=== PATIENT | female | born 1995 | race Caucasian/White ===

== ENCOUNTER 2024-12-02 09:12 | Inpatient (IN) | payer BC, OTHER ==
[2024-12-02] MEDS ORDERED: Zofran 4 MG/2 ML VIAL IV PRN (09:43)
[2024-12-02] MEDS ORDERED: TYLENOL EXTRA STRENGTH 500 MG PO PRN (09:43)
[2024-12-02] MEDS ORDERED: Lactated Ringers 1,000 ML IV SCH (10:00)
[2024-12-02] MEDS ORDERED: CYTOTEC PO SCH (10:00)
[2024-12-02 10:06] LABS: Hematocrit 32.6 % (34.1-44.9); Hemoglobin 11.1 g/dL (11.2-15.7); Mean Cell Volume 85.6 fL (79.4-94.8); Mean Corpuscular Hemoglobin 29.1 pg (25.6-32.2); Mean Platelet Volume 12.6 fL (9.4-12.3); Platelet Count 134 x10^3/uL (182-369); Red Blood Count 3.81 x10^6/uL (3.93-5.22); Red Cell Distribution Width 13.7 % (11.7-14.4); White Blood Count 7.9 x10^3/uL (3.98-10.04)
[2024-12-02 10:27] LABS: Amphetamine,Urine NEGATIVE (NEGATIVE); Barbiturate,Urine NEGATIVE (NEGATIVE); Benzodiazepine,Urine NEGATIVE (NEGATIVE); Cocaine,Urine NEGATIVE (NEGATIVE); Methadone,Urine NEGATIVE (NEGATIVE); Opiate,Urine NEGATIVE (NEGATIVE); PCP,Urine NEGATIVE (NEGATIVE); THC,Urine NEGATIVE (NEGATIVE)
[2024-12-02 11:47] LABS: ABO TYPING O; RH TYPING POSITIVE
[2024-12-02 11:48] LABS: Antibody Screen NEGATIVE (NEGATIVE)
[2024-12-02 12:40] LABS: Lymphocytes 22 % (19.3-51.7); Monocyte 2 % (4.7-12.5); Neutrophils 76 % (34.0-71.1); Total Cells Counted 100
[2024-12-02 12:45] LABS: Platelet Estimate DECREASED (NORMAL)
[2024-12-02 12:46] LABS: Ovalocytes 1+
[2024-12-02 19:40] LABS: AMNISURE TEST RESULTS POSITIVE (NEGATIVE)
[2024-12-02] MEDS ORDERED: XYLOCAINE 1% HCL 20 ML MDV ONE (19:49)
[2024-12-02] MEDS: PITOCIN 30 UNITS/ LR 500 ML 30 UNITS/500 ML PLAST..BAG IV SCH (19:53)
[2024-12-02] MEDS ORDERED: Dulcolax 10 MG SUPP PR PRN (23:34)
[2024-12-02] MEDS: MOTRIN 400 MG PO PRN (23:49)
[2024-12-03] MEDS: LANSINOH 40 GM TOP PRN (01:28)
[2024-12-03] MEDS: TUCKS TP PRN (01:28)
[2024-12-03] MEDS: Dermoplast Spray TP PRN (01:29)
[2024-12-03] MEDS: CORTISONE 1% CREAM TP PRN (01:30)
[2024-12-03 02:38] VITALS: RESP 18
[2024-12-03 06:40] LABS: Hemoglobin 11.3 g/dL (11.2-15.7); Mean Cell Volume 86.7 fL (79.4-94.8); Mean Corpuscular Hemoglobin 28.8 pg (25.6-32.2); Mean Corpuscular Hgb Concent. 33.2 g/dL (32.2-35.5); Mean Platelet Volume 12.9 fL (9.4-12.3); Platelet Count 151 x10^3/uL (182-369); Red Blood Count 3.92 x10^6/uL (3.93-5.22); Red Cell Distribution Width 13.9 % (11.7-14.4); White Blood Count 14.5 x10^3/uL (3.98-10.04)
[2024-12-03 08:04] LABS: Eosinophil 1 % (0.7-5.8); Lymphocytes 14 % (19.3-51.7); Monocyte 2 % (4.7-12.5); Neutrophils 83 % (34.0-71.1); Platelet Estimate NORMAL (NORMAL); Total Cells Counted 100; Toxic Granulation 1+
--- NOTE | 2024-12-03 08:05 | PCM.NOTE ---
Date and Time: 12/03/24803 Subjective Assessment: ppd 1 sp pt resting in bed doing well able to ambulate and tolerate diet vss afebrile abd; soft uterus; firm lochia; mild hgb; 11 a/p sp ppd 1 dc home tomorrow fu office 3 wks Objective Data Vital Signs: Vital Signs - 24 hr Temp Pulse Resp BP BP Pulse Ox 12/03/24 02:00 98.0 F 70 18 101/50 100 12/03/24 01:52 98.0 F 81 18 101/50 98 12/03/24 01:30 130/69 12/03/24 01:15 116 H 20 98 12/03/24 01:00 98.0 F 96 H 20 123/66 100 12/03/24 00:45 106 H 20 126/74 99 12/03/24 00:30 113 H 18 105/77 99 12/03/24 00:15 111 H 18 121/65 99 12/03/24 00:00 98.2 F 107 H 18 126/79 99 12/02/24 22:50 98.0 F 102 H 18 125/65 100 12/02/24 22:00 98.0 F 102 H 18 141/78 141/78 100 12/02/24 21:00 139 H 20 129/71 12/02/24 20:30 52 L 20 138/84 99 12/02/24 19:00 98.4 F 66 20 136/87 99 12/02/24 18:00 98.4 F 97 H 20 138/83 130/69 99 12/02/24 17:00 98.7 F 93 H 20 117/66 99 12/02/24 16:00 98.7 F 85 20 126/67 99 12/02/24 15:00 98.7 F 95 H 20 130/69 99 12/02/24 14:02 98.7 F 95 H 20 130/69 99 12/02/24 14:00 98.7 F 95 H 20 130/69 99 12/02/24 13:00 98.7 F 79 20 128/76 99 12/02/24 12:00 98.7 F 20 12/02/24 11:11 98.7 F 108 H 20 140/87 98 12/02/24 11:00 98.7 F 108 H 20 140/87 98 12/02/24 10:02 108 H 140/87 98 Pain Assessment - Last Documented Pain Intensity [Lower Anterior 4 ] Pain Intensity 2 Pain Scale Used 0-10 Pain Scale Intake and Output: Intake & Output 11/30/24 12/01/24 12/02/24 12/03/24 11:59 11:59 11:59 11:59 Intake Total 600 Output Total 250 Balance 350 Weight 94.801 kg Lab Results: Lab Results-Last 24 Hours 12/02/24 12/02/24 12/02/24 Range/Units 10:02 10:02 10:02 WBC 7.9 (3.98-10.04) x10^3/uL RBC 3.81 L (3.93-5.22) x10^6/uL Hgb 11.1 L (11.2-15.7) g/dL Hct 32.6 L (34.1-44.9) % MCV 85.6 (79.4-94.8) fL MCH 29.1 (25.6-32.2) pg MCHC 34.0 (32.2-35.5) g/dL RDW 13.7 (11.7-14.4) % Plt Count 134 L (182-369) x10^3/uL MPV 12.6 H (9.4-12.3) fL Segmented Neutrophils 76 H (34.0-71.1) % Lymphocytes (Manual) 22 (19.3-51.7) % Monocytes (Manual) 2 L (4.7-12.5) % Platelet Estimate DECREASED (NORMAL) RBC Morphology ABNORMAL Ovalocytes 1+ Urine Opiates Level NEGATIVE (NEGATIVE) Ur Methadone NEGATIVE (NEGATIVE) Urine Barbiturates NEGATIVE (NEGATIVE) Ur Phencyclidine (PCP) NEGATIVE (NEGATIVE) Urine Amphetamine NEGATIVE (NEGATIVE) U Benzodiazepine Level NEGATIVE (NEGATIVE) Urine Cocaine NEGATIVE (NEGATIVE) Urine Marijuana (THC) NEGATIVE (NEGATIVE) ABO Group O Rh Factor POSITIVE Antibody Screen NEGATIVE (NEGATIVE) 12/03/24 Range/Units 06:37 WBC 14.5 H (3.98-10.04) x10^3/uL RBC 3.92 L (3.93-5.22) x10^6/uL Hgb 11.3 (11.2-15.7) g/dL Hct 34.0 L (34.1-44.9) % MCV 86.7 (79.4-94.8) fL MCH 28.8 (25.6-32.2) pg MCHC 33.2 (32.2-35.5) g/dL RDW 13.9 (11.7-14.4) % Plt Count 151 L (182-369) x10^3/uL MPV 12.9 H (9.4-12.3) fL Segmented Neutrophils (34.0-71.1) % Lymphocytes (Manual) (19.3-51.7) % Monocytes (Manual) (4.7-12.5) % Platelet Estimate (NORMAL) RBC Morphology Ovalocytes Urine Opiates Level (NEGATIVE) Ur Methadone (NEGATIVE) Urine Barbiturates (NEGATIVE) Ur Phencyclidine (PCP) (NEGATIVE) Urine Amphetamine (NEGATIVE) U Benzodiazepine Level (NEGATIVE) Urine Cocaine (NEGATIVE) Urine Marijuana (THC) (NEGATIVE) ABO Group Rh Factor Antibody Screen (NEGATIVE) Assessment/Plan (1) Vaginal delivery Current Visit: Yes Status: Acute Code(s): O80 - ENCOUNTER FOR FULL-TERM UNCOMPLICATED DELIVERY
--- NOTE | 2024-12-03 08:09 | PCM.DS ---
Discharge Summary Date of Admission: 12/02/24 17:00 Admitting Physician: JOSE WHITAKER DO Consults: Consults on Case 12/02/24 23:35 Notify Physician ROUTINE Primary Care Provider: FROILAN FLANNERY Allergies Allergies Penicillins Allergy (Verified 11/06/24 10:48) Hospital Summary - Hospital Course Hospital Course: pt admitted on dec 02 for vaginal cytotec induction with subsequent pitocin at 39 5/7 wks gestation and delivered live baby boy via on dec 02 without complication and had a small midline perineal tear 2nd degree that was repaired. during period pt did very well able to ambulate and tolerate diet with stable hgb at 11. pt stable for discharge on dec 04 and was advised to fu in office in 3 wks. all questions answered to her satisfaction and was advised to call me with any issues she may have upon discharge. . - Vitals & Intake/Output Vital Signs: Vital Signs Temperature 98.0 F 12/03/24 02:00 Pulse Rate 70 12/03/24 02:00 Respiratory Rate 18 12/03/24 02:00 Blood Pressure 101/50 12/03/24 02:00 O2 Sat by Pulse Oximetry 100 12/03/24 02:00 Intake & Output: Intake & Output 11/30/24 12/01/24 12/02/24 12/03/24 11:59 11:59 11:59 11:59 Intake Total 600 Output Total 250 Balance 350 Weight 94.801 kg - Lab Result Diagrams: 12/03/24 06:37 Lab Results-Last 24 Hrs: Lab Results-Last 24 Hours 12/02/24 12/02/24 12/02/24 Range/Units 10:02 10:02 10:02 WBC 7.9 (3.98-10.04) x10^3/uL RBC 3.81 L (3.93-5.22) x10^6/uL Hgb 11.1 L (11.2-15.7) g/dL Hct 32.6 L (34.1-44.9) % MCV 85.6 (79.4-94.8) fL MCH 29.1 (25.6-32.2) pg MCHC 34.0 (32.2-35.5) g/dL RDW 13.7 (11.7-14.4) % Plt Count 134 L (182-369) x10^3/uL MPV 12.6 H (9.4-12.3) fL Segmented Neutrophils 76 H (34.0-71.1) % Lymphocytes (Manual) 22 (19.3-51.7) % Monocytes (Manual) 2 L (4.7-12.5) % Eosinophils (Manual) (0.7-5.8) % Toxic Granulation Platelet Estimate DECREASED (NORMAL) RBC Morphology ABNORMAL Ovalocytes 1+ Urine Opiates Level NEGATIVE (NEGATIVE) Ur Methadone NEGATIVE (NEGATIVE) Urine Barbiturates NEGATIVE (NEGATIVE) Ur Phencyclidine (PCP) NEGATIVE (NEGATIVE) Urine Amphetamine NEGATIVE (NEGATIVE) U Benzodiazepine Level NEGATIVE (NEGATIVE) Urine Cocaine NEGATIVE (NEGATIVE) Urine Marijuana (THC) NEGATIVE (NEGATIVE) ABO Group O Rh Factor POSITIVE Antibody Screen NEGATIVE (NEGATIVE) 12/03/24 Range/Units 06:37 WBC 14.5 H (3.98-10.04) x10^3/uL RBC 3.92 L (3.93-5.22) x10^6/uL Hgb 11.3 (11.2-15.7) g/dL Hct 34.0 L (34.1-44.9) % MCV 86.7 (79.4-94.8) fL MCH 28.8 (25.6-32.2) pg MCHC 33.2 (32.2-35.5) g/dL RDW 13.9 (11.7-14.4) % Plt Count 151 L (182-369) x10^3/uL MPV 12.9 H (9.4-12.3) fL Segmented Neutrophils 83 H (34.0-71.1) % Lymphocytes (Manual) 14 L (19.3-51.7) % Monocytes (Manual) 2 L (4.7-12.5) % Eosinophils (Manual) 1 (0.7-5.8) % Toxic Granulation 1+ Platelet Estimate NORMAL (NORMAL) RBC Morphology NORMAL Ovalocytes Urine Opiates Level (NEGATIVE) Ur Methadone (NEGATIVE) Urine Barbiturates (NEGATIVE) Ur Phencyclidine (PCP) (NEGATIVE) Urine Amphetamine (NEGATIVE) U Benzodiazepine Level (NEGATIVE) Urine Cocaine (NEGATIVE) Urine Marijuana (THC) (NEGATIVE) ABO Group Rh Factor Antibody Screen (NEGATIVE) Final Diagnosis/Problem List - Final Discharge Diagnosis/Problem (1) Vaginal delivery Current Visit: Yes Status: Acute Code(s): O80 - ENCOUNTER FOR FULL-TERM UNCOMPLICATED DELIVERY - Discharge Disposition: Home, Self-Care Condition: Stable Prescriptions: No Action Pnv No.103/Folic/Om3s/Fish Oil [ Gummies] 1 tab PO DAILY Follow up with: FROILAN FLANNERY PA [Primary Care Provider] - JOSE WHITAKER DO [ACTIVE STAFF] - 3 weeks
[2024-12-03] MEDS: FERREX 150 PO SCH (12:09)
[2024-12-03] MEDS: Adacel Vial IM ONE (12:09)
[2024-12-03] MEDS: Docusate Sodium 100 MG PO SCH (12:09)
[2024-12-04 02:37] VITALS: O2SAT 97
[2024-12-04 09:10] LABS: RPR Non Reactive (Non Reactive)
[2024-12-04 09:42] VITALS: BP 119/70; PULSE 100; TEMP 98.3
== END 2024-12-04 14:20 | disposition home or self-care (01) | DRG 807 ==
LOC: MED SURG 09:12 → OB 13:37 → MED SURG 17:00 → OBSVTOIN 17:00
PROVIDERS: ADMIT Obstetrics & Gynecology; ATTEND Obstetrics & Gynecology
PROC: 10E0XZZ Delivery of Products of Conception, External Approach (ICD-10-PCS; principal; 2024-12-02)
PROC: 0KQM0ZZ Repair Perineum Muscle, Open Approach (ICD-10-PCS; 2024-12-02)
DX: O70.1 Second degree perineal laceration during delivery (principal); Z37.0 Single live birth; O69.81X0 Labor and delivery complicated by cord around neck, without compression, not applicable or unspecified; Z3A.39 39 weeks gestation of pregnancy
CPT/HCPCS: 36415; 80307; 84112; 85025; 86592; 86850; 86900; 86901; 90715; J2590; A9270-GY